=== PATIENT | female | born 1990 | race Caucasian/White ===

== ENCOUNTER 2018-07-15 11:51 | Inpatient (IN) | payer BC ==
[~2018-07-15] VITALS: Ht 167.7 cm; Wt 86.4 kg
[2018-08-18] VITALS (67 sets, daily range): BP systolic 107–148; BP diastolic 66–97; PULSE 69–150; TEMP 98.1–100.4
[2018-08-18] MEDS ORDERED: PRENATAL MVI (07:25)
[2018-08-18 08:02] LABS: HEMOGLOBIN 10.8 g/dl (12.5-16.0); MEAN CELL VOLUME 77 fl (80.0-100.0); MEAN CORPUSCULAR HEMOGLOBIN 25 pg (27.0-31.0); MEAN CORPUSCULAR HGB CONC 33 g/dl (33.0-37.0); MEAN PLATELET VOLUME 10.7 fl (7.4-10.4); PLATELET COUNT 288 K/mm3 (130-400); RED BLOOD COUNT 4.32 M/mm3 (4.10-5.30); REDCELL DISTRIBUTION WIDTH-CV 15.2 % (11.5-14.5)
[2018-08-18 08:03] LABS: HEMATOCRIT 33.1 % (37.0-47.0)
[2018-08-18 08:42] LABS: BAND 24 % (0-10); LYMPHOCYTE 21 % (20.0-51.0); NEUTROPHILS 53 % (42.0-75.2); PLATELET ESTIMATE NORMAL (NORMAL)
[2018-08-18 08:43] LABS: HYPOCHROMIA 1+; MICROCYTOSIS 1+
[2018-08-18] MEDS ORDERED: MOTRIN 800800 MG/TAB PO (10:55)
[2018-08-18] MEDS ORDERED: PERCOCET 325 MG1 TA2 PO (10:55)
[2018-08-19] VITALS (12 sets, daily range): BP systolic 116–136; BP diastolic 66–87; PULSE 90–123; TEMP 98.1–99
[2018-08-19 06:56] LABS: HEMATOCRIT 25.2 % (37.0-47.0); HEMOGLOBIN 8.3 g/dl (12.5-16.0)
[2018-08-20 08:08] VITALS: BP 117/66; PULSE 97; TEMP 98.1
[2018-08-20 15:35] VITALS: BP 124/68; PULSE 72; TEMP 98.1
[2018-08-20 21:50] VITALS: BP 129/75; PULSE 111; TEMP 97.8
== END 2018-08-21 16:50 | disposition home or self-care (01) | DRG 765 ==
LOC: LDR 08-18 07:07 → OB 08-19 → EDSTATUS 08-24 10:21 → LDR 08-24 10:22 → LDRO 08-24 11:51
PROVIDERS: Obstetrics & Gynecology
PROC: 10D00Z1 Extraction of Products of Conception, Low, Open Approach (ICD-10-PCS; principal; 2018-08-18)
PROC: 3E033VJ Introduction of Other Hormone into Peripheral Vein, Percutaneous Approach (ICD-10-PCS; 2018-08-18)
PROC: 10907ZC Drainage of Amniotic Fluid, Therapeutic from Products of Conception, Via Natural or Artificial Opening (ICD-10-PCS; 2018-08-18)
DX: O62.1 Secondary uterine inertia (principal); O36.0930 Maternal care for other rhesus isoimmunization, third trimester, not applicable or unspecified; O76 Abnormality in fetal heart rate and rhythm complicating labor and delivery; Z3A.39 39 weeks gestation of pregnancy; Z37.0 Single live birth; Z22.330 Carrier of Group B streptococcus; O62.2 Other uterine inertia
CPT/HCPCS: J0690; J1885; J2175; J2210; J2250; J2405; J2590; J2795; J3010; J3370; J7050; J7120

== ENCOUNTER → 2018-08-26 | Outpatient (CLI) | payer BC ==
[~2018-08-26] MED LIST: MOTRIN 800800 MG/TAB PO; PERCOCET 325 MG1 TA2 PO; PRENATAL MVI
== END ==
LOC: LAC 15:06
DX: Z39.1 Encounter for care and examination of lactating mother (principal); Z71.89 Other specified counseling

== ENCOUNTER → 2018-10-29 | Outpatient (CLI) | payer BC | LOC: LAC 10:56 | DX: Z39.1 Encounter for care and examination of lactating mother (principal); Z71.89 Other specified counseling ==

== ENCOUNTER → 2018-12-17 | Outpatient (CLI) | payer BC ==
--- NOTE | 2018-12-17 11:29 | NUR ---
Pt, Helga Santana, presents to walk in clinic to evaluate milk transfer and discuss her son, Srinivasa's, feeding pattern. Srinivasa was born on [birth year] and weighed 8# 1.8oz, They were seen at clinic on 10/29/18 and his weight was 12# 10.8oz . Today his weight is 17# 6oz. She reports he still eats q 2-3 hours even at [facility]. He is now 4 months old. Her breatfeeding log indicates she feeds on demand, sometimes as often as 1.5 hours. She is nurisng on one side, about 5-15 min per feeding. She removes him when she feels he is not nursing well, generally not offering second breast. Pt advised to nurse Srinivasa longer, he nurses the right breast for about 10 minutes and has a weight gain of 3.2oz. She normally would stop feeding him at this time, but agress to offer second breast. Srinivasa has an additional gain of 2.2oz for a total intake of 5.4oz after only 5 more minutes. Pt is advised to offer both breasts each feeding trying to keep him engaged for about 10 minutes each breast. Pt verbalizes understanding, pt has upcoming travel, discussed travel and feeding pland. POC: Breastfeed ad savannah, offering the second breast. Questions invited and answered. Follow up prn.
== END ==
LOC: LAC 10:22
DX: Z39.1 Encounter for care and examination of lactating mother (principal); Z71.89 Other specified counseling

== ENCOUNTER → 2019-01-21 | Outpatient (CLI) | payer BC | LOC: OLC 10:22 | DX: Z39.1 Encounter for care and examination of lactating mother (principal); Z71.89 Other specified counseling ==

== ENCOUNTER → 2019-04-01 | Outpatient (CLI) | payer BC ==
--- NOTE | 2019-04-01 14:23 | NUR ---
Pt, Fannie Santana, presents to walk-in clinic with 7+ month old baby boy, Srinivasa Santana for a weight check and to ask questions about milk management as Srinivasa is sleeping through the noc. Srinivasa was born on [birth year] and weighed 8#1.8oz. Today he weighs 22# 4.4oz. He drinks 5.5oz while during this visit. Questions about milk supply management answered. POC: Continue breastfeding and other feeds as she has been. F/U: At clinic as desired.
== END ==
LOC: OLC 10:36
DX: Z39.1 Encounter for care and examination of lactating mother (principal); Z71.89 Other specified counseling

== ENCOUNTER 2020-05-29 12:44 | Inpatient (IN) | payer BC ==
[2020-05-29] VITALS (40 sets, daily range): BP systolic 113–148; BP diastolic 66–90; PULSE 74–139; TEMP 97.5–99.7
[~2020-05-29] VITALS: Ht 170.2 cm; Wt 80.0 kg
--- NOTE | 2020-05-29 12:40 | NUR ---
Patient onto unit via wheelchair with at side with report of contractions since 1030. Patient reports good movement. Denies vaginal bleeding or leaking of fluid. Patient oriented to room, changes into gown. , 39.2wks gestation. GBS+. Patient reports previous section. Denies other complications. EFMs on, VS taken. SVE /-1 per this RN. CANTU. notified of patient request to TOLAC. Orders received.
--- NOTE | 2020-05-29 14:15 | NUR ---
1400: Patient sitting up for epidural. Matt DEWEY to bedside. 1411: Lidocaine. 1414: Epidural Catheter placed. 1415: Test Dose given by Matt DEWEY. No adverse reactions noted. 1420: Patient repositioned to left tilt. Plan of care discussed. Denies needs. at bedside. Call light within reach.
[2020-05-29 14:22] LABS: BASO # 0.1 (0.0-0.2); BASO % 0.5 % (0.0-2.0); EOS # 0.1 (0.0-0.7); EOS % 0.9 % (0-4.0); GRAN # 11.1 (1.4-6.5); GRAN % 78.1 % (42.2-75.2); HEMOGLOBIN 10.2 g/dl (12.5-16.0); LYMPH % 14.3 % (20.0-51.0); MEAN CELL VOLUME 79 fl (80.0-100.0); MEAN CORPUSCULAR HEMOGLOBIN 25 pg (27.0-31.0); MEAN CORPUSCULAR HGB CONC 31 g/dl (33.0-37.0); MEAN PLATELET VOLUME 10.7 fl (7.4-10.4); MONO # 0.7 (0.1-0.6); MONO % 5.1 % (1.7-9.3); PLATELET COUNT 256 K/mm3 (130-400); RED BLOOD COUNT 4.15 M/mm3 (4.10-5.30); REDCELL DISTRIBUTION WIDTH-CV 14.8 % (11.5-14.5)
[2020-05-29 14:23] LABS: HEMATOCRIT 32.6 % (37.0-47.0)
--- NOTE | 2020-05-29 15:10 | NUR ---
Patient comfortable with epidural. Merritt catheter placed. SVE 4-5//-1. Patient repositioned to right tilt with peanut ball in place. Denies pain or needs at this time. at bedside. Call light within reach.
--- NOTE | 2020-05-29 15:30 | NUR ---
to bedside. Plan of care discussed regarding TOLAC. Questions answered. AROM at 1529 by , small amount of clear fluid noted. SVE 5/100/-1 per provider. Patient encouraged to rest. Call light within reach.
--- NOTE | 2020-05-29 16:45 | NUR ---
Patient reporting pain in her left buttocks area. Patient pushes epidural button. SVE 6-7/100/0. Pericare performed. Patient repositioned to left tilt with peanut ball in place, HOB elevated.
--- NOTE | 2020-05-29 17:10 | NUR ---
Patient states pain is continuing and spreading to her vaginal area. SVE unchanged. Matt SMALL ELECTRIC ENGINE TECHNICIAN notified, to bedside for bolus dose.
--- NOTE | 2020-05-29 17:25 | NUR ---
Patients pain increasing with contractions. HOB elevated more, Matt WATER PUMP OPERATOR notified. Will continue to monitor.
--- NOTE | 2020-05-29 18:05 | NUR ---
Matt BARREL RIB MATTING MACHINE OPERATOR updated to pain level. RN to bedside. Patient states she is feeling more pressure vs pain. While at bedside, states she is feeling more pressure vaginally. SVE 7-8/100/0, bloody show noted. Patient into raimundo position. Encouraged to call out with increased pain or pressure.
--- NOTE | 2020-05-29 18:30 | NUR ---
Report to Sarai MALDONADO to assume care of patient at this time.
--- NOTE | 2020-05-29 20:30 | NUR ---
2030 PT C/O LOTS OF RECTAL AND PERINEAL PRESSURE WITH CONTRACTIONS. STATES FEELS LIKE BABY IS RIGHT THERE. SVE /. PRESENTING PART DOES COME DOWN WITH CONTRACTIONS AND CERVIX STRETCHES TO 9 CM.
--- NOTE | 2020-05-29 22:25 | NUR ---
2224 DR FARLEY HERE. SVE WITH NO CERVICAL CHANGE AND ANT CERVIX BEGINNING TO SWELL. 2229 C/SECT CALLED. READIED FOR SURGERY. 2239 TO OR PER BED.
--- NOTE | 2020-05-29 23:45 | NUR ---
2345 TO PACU. TEMP 99.1 ORALLY. VERY MINIMUL VAG BLEEDING WITH FF U/1.
[2020-05-30] VITALS (16 sets, daily range): BP systolic 110–129; BP diastolic 65–83; PULSE 67–106; TEMP 98.1–99.5
--- NOTE | 2020-05-30 01:00 | NUR ---
0100 PERICARE DONE WITH SCANT VAG BLEEDING. ABD BINDER ON. PERCOCET X2 FOR INC PAIN. LIGHTS OUT TO SLEEP
--- NOTE | 2020-05-30 02:40 | NUR ---
Assumed care at this time.
--- NOTE | 2020-05-30 03:35 | NUR ---
Woke at this time. returned to room. IVF capped at this time. 2,000 mls of clear, yellow urine drained from barbour catheter. Perineum care provided at this time. VS obtained. Fundus is firm. POC reviewed, denied questions or concerns.
[2020-05-31] MEDS ORDERED: MOTRIN 800800 MG/TAB PO (07:47)
[2020-05-31] MEDS ORDERED: PERCOCET 325 MG1 TA2 PO (07:47)
[2020-05-31 10:40] VITALS: BP 120/72; PULSE 94; TEMP 97.3
[2020-05-31 16:16] VITALS: BP 129/67; PULSE 84; TEMP 98.7
[2020-05-31 20:30] VITALS: BP 108/61; PULSE 82; TEMP 98.6
[2020-06-01 06:40] VITALS: BP 117/73; PULSE 77; TEMP 98.2
== END 2020-06-01 10:25 | disposition home or self-care (01) | DRG 788 ==
LOC: LDRO 12:44 → LDR 13:10 → OB 05-30 00:25
PROVIDERS: Obstetrics & Gynecology; ADMIT Obstetrics & Gynecology
PROC: 10D00Z1 Extraction of Products of Conception, Low, Open Approach (ICD-10-PCS; principal; 2020-05-29)
DX: O34.211 Maternal care for low transverse scar from previous cesarean delivery (principal); O62.1 Secondary uterine inertia; O66.41 Failed attempted vaginal birth after previous cesarean delivery; Z3A.39 39 weeks gestation of pregnancy; Z37.0 Single live birth; O99.824 Streptococcus B carrier state complicating childbirth; G25.2 Other specified forms of tremor; O75.89 Other specified complications of labor and delivery
CPT/HCPCS: J1885; J2400; J2405; J2590; J2791; J7120

== ENCOUNTER → 2023-07-26 | Outpatient (RCR) | payer OTHER ==
[2023-07-24 10:09] VITALS: BP 101/63; PULSE 105; TEMP 99.1
--- NOTE | 2023-07-24 11:15 | NUR ---
Pt tolerated initial venofer infusion without issue. IV DC'd, site wrapped with coban. Pt exits dept with steady gait. Appt dates were moved to due to pt being out of town for some of the infusions, she will get first 2 doses before going OOT, and complete course upon return.
[~2023-07-26] VITALS: Ht 170.2 cm; Wt 60.0 kg
[~2023-07-26] MED LIST changes: +CRANBERRY 4001 EACH PO; +DIFLUCAN150 MG PO; +FLAGYL500 MG PO; +HUMIRA PEN40 MG/0.4 SQ; +PROBIOTIC PEAR1 EAC3 PO; +VENOFER IV
[2023-07-26 10:21] VITALS: BP 106/71; PULSE 85; TEMP 99
--- NOTE | 2023-07-26 10:49 | NUR ---
Pt tolerated infusion without issue. IV DC'd, site wrapped with coban. She exits dept with steady gait.
== END ==
LOC: EUO
DX: D50.9 Iron deficiency anemia, unspecified (principal)
CPT/HCPCS: J1756

== ENCOUNTER 2023-08-08 10:00 | Outpatient (RCR) | payer OTHER ==
[2023-07-31 15:21] VITALS: BP 103/71; PULSE 110; TEMP 99.6
[2023-08-06 10:36] VITALS: BP 123/78; PULSE 78; TEMP 98
[~2023-08-08] VITALS: Ht 170.2 cm; Wt 60.0 kg
[2023-08-08 09:41] VITALS: BP 114/77; PULSE 88; TEMP 98.1
--- NOTE | 2023-08-08 10:01 | NUR ---
PT TOLERATED FINAL IRON INFUSION WELL. PT'S VS REMAINED WNL AND SHE AM[facility]UL[facility]. PT'S IV WAS DISCONTINUED AND SHE WAS FREE FROM CONCERNS AND COMPLAINTS AT TIME OF DISCHARGE.
== END 2023-08-08 10:11 | disposition home or self-care (01) ==
LOC: EUO 10:00
DX: D50.9 Iron deficiency anemia, unspecified (principal)
CPT/HCPCS: J1756